=== PATIENT | male | born 1975 | race American Indian/Alaskan Native ===

== ENCOUNTER 2019-11-03 22:30 | Emergency (ER) | payer OTHER ==
[~2019-11-03] VITALS: Ht 172.7 cm; Wt 83.9 kg
[~2019-11-03 22:30] MED LIST: CLINDAMYCIN HC300 MG PO; IBUPROFEN600 MG PO; NORCO 5-325 TA1 EACH PO; OXYCODON-ACETA1 EAC2 PO
== END 2019-11-04 00:17 | disposition home or self-care (01) ==
LOC: ED 22:30
DX: S02.2XXA Fracture of nasal bones, initial encounter for closed fracture (principal); Y04.8XXA Assault by other bodily force, initial encounter; F17.200 Nicotine dependence, unspecified, uncomplicated
CPT/HCPCS: 12011; 70160; 99284-25; A9270

== ENCOUNTER 2020-12-28 20:36 | Emergency (ER) | payer OTHER ==
[~2020-12-28] VITALS: Ht 172.7 cm; Wt 81.7 kg
== END 2020-12-29 00:44 | disposition home or self-care (01) ==
LOC: ED 20:36
DX: S80.02XA Contusion of left knee, initial encounter (principal); F10.129 Alcohol abuse with intoxication, unspecified; Y90.8 Blood alcohol level of 240 mg/100 ml or more; V43.52XA Car driver injured in collision with other type car in traffic accident, initial encounter; F17.200 Nicotine dependence, unspecified, uncomplicated
CPT/HCPCS: 70450; 71260; 72125; 73560; 74177; 80053; 82150; 82550; 83690; 85025; 86850; 86900; 86901; 99284-25; G0480

== ENCOUNTER 2022-11-19 14:23 | Emergency (ER) | payer OTHER ==
[~2022-11-19] VITALS: Ht 172.7 cm; Wt 81.7 kg
== END 2022-11-19 15:50 | disposition home or self-care (01) ==
LOC: ED 14:23
DX: S60.142A Contusion of left ring finger with damage to nail, initial encounter (principal); S60.132A Contusion of left middle finger with damage to nail, initial encounter; S67.195A Crushing injury of left ring finger, initial encounter; S67.193A Crushing injury of left middle finger, initial encounter; W23.0XXA Caught, crushed, jammed, or pinched between moving objects, initial encounter; F17.200 Nicotine dependence, unspecified, uncomplicated; Z23 Encounter for immunization
CPT/HCPCS: 11740; 73130; 90471; 90714; 99283-25

== ENCOUNTER 2024-11-27 19:26 | Emergency (ER) | payer OTHER ==
[~2024-11-27] VITALS: Ht 172.7 cm; Wt 103.0 kg
[2024-11-27] MEDS ORDERED: ENALAPRILAT DIHYDRATE 1.25 MG/ML VIAL IV ONE (21:15)
[2024-11-27 21:30] LABS: BASOPHILS 0.3 % (0-2); HEMATOCRIT 44.1 % (35.0-50.0); HEMOGLOBIN 15.2 g/dL (12.0-18.0); LYMPHOCYTES 17.2 % (24-44); MCH 30.3 (27-36); MCHC 34.4 g/dl (30-36); MCV 88.2 fl (81-99); MONOCYTES 5.9 % (0-12); NEUTROPHILS 75.6 % (39-80); PLATELET COUNT 265 K/uL (140-440); RDW 13.6 (10.5-15.0)
[2024-11-27 21:45] LABS: ALBUMIN 4.2 g/dL (3.4-5.0); ALBUMIN/GLOBULIN RATIO 1.11 (1.1-2.4); ANION GAP 14.1 (7-21); BILIRUBIN, TOTAL 0.5 mg/dL (0.2-1.0); BUN/CREATININE RATIO 18.75 (6.0-28.6); CALCIUM 9.5 mg/dL (8.5-10.1); CREATININE, SERUM 1.12 mg/dL (0.70-1.30); POTASSIUM 4.1 mmol/L (3.5-5.1)
[2024-11-27] MEDS ORDERED: LOSARTAN POTASS25 MG PO (23:30)
[2024-11-27 23:44] VITALS: BP 117/76
== END 2024-11-27 23:45 | disposition home or self-care (01) ==
LOC: ED 19:26
PROVIDERS: Family Medicine
DX: I10 Essential (primary) hypertension (principal); F17.200 Nicotine dependence, unspecified, uncomplicated
CPT/HCPCS: 36415; 70496; 70498; 80053; 85025; 99284-25; Q9967